=== PATIENT | male | born 1980 | race Caucasian/White ===

== ENCOUNTER 2017-08-16 09:35 | Emergency (ER) | payer OTHER ==
[2017-08-16 09:42] VITALS: BP 153/90; PULSE 77; TEMP 98.7; BMI 43.9
[2017-08-16] MEDS ORDERED: CYCLOBENZAPRINE HCL 10 MG TABLET (FP) PO ONE (10:25)
[2017-08-16] MEDS ORDERED: KETOROLAC TROMETHAMINE 60 MG/2 ML VIAL IM ONE (10:25)
--- NOTE | 2017-08-16 10:26 | PDOC ---
History of Present Illness - General Chief Complaint: Back Pain Stated Complaint: BACK PAIN Time Seen by Provider: 08/16/17 10:02 History Source: Patient Exam Limitations: No Limitations - History of Present Illness Initial Comments: 08/16/17 10:23 She states has back spasm since moving a chair yesterday. States had a long sitting. At work a couple days ago, but states slight movement yesterday caused severe spasm that extends across his lower thoracic spinous musculature. Denies numbness or tingling to hands or feet, has no fever, nausea vomiting diarrhea or constipation. No problems with bowel or bladder. Occurred: reports: yesterday Severity: reports: moderate Pain Location: reports: back Modifying Factors: improves with: None Loss of Consciousness: no loss of consciousness Associated Symptoms (Fall): denies symptoms Past History - Travel Traveled outside of the country in the last 30 days: No Close contact w/someone who was outside of country & ill: No - Past Medical History Allergies/Adverse Reactions: Allergies Allergy/AdvReac Type Severity Reaction Status Date / Time No Known Allergies Allergy Verified 08/16/17 09:37 Home Medications: Ambulatory Orders Metaxalone 400 mg PO TID PRN #20 tablet 08/16/17 HTN: Yes - Surgical History Cholecystectomy: Yes - Immunization History Immunization Up to Date: Yes - Suicide/Smoking/Psychosocial Hx Smoking History: Current every day smoker Have you smoked in the past 12 months: Yes Number of Cigarettes Smoked Daily: 20 Information on smoking cessation initiated: No Hx Alcohol Use: No Drug/Substance Use Hx: No Substance Use Type: None Review of Systems - Review of Systems Able to Perform ROS?: Yes Is the patient limited Kosovan proficient: Yes Constitutional: Yes: See HPI. No: Symptoms Reported, Chills, Fever, Malaise HEENTM: Yes: See HPI. No: Symptoms Reported Respiratory: Yes: See HPI. No: Symptoms reported, Cough, Wheezing : No: Symptoms Reported Musculoskeletal: Yes: Symptoms Reported, See HPI, Back Pain, Muscle Pain, Muscle Weakness Integumentary: Yes: See HPI. No: Symptoms Reported, Rash All Other Systems: Reviewed and Negative *Physical Exam - Vital Signs Last Vital Signs Temp Pulse Resp BP Pulse Ox 98.7 F 77 15 153/90 99 08/16/17 09:38 08/16/17 09:38 08/16/17 09:38 08/16/17 09:38 08/16/17 09:38 - Physical Exam General Appearance: Yes: Nourished, Appropriately Dressed, Apparent Distress, Moderate Distress HEENT: positive: JENNIFER, Normal ENT Inspection, TMs Normal, Pharynx Normal Neck: positive: Supple Respiratory/Chest: positive: Lungs Clear Musculoskeletal: positive: Muscle Spasm (spasm palpated along the paravertebral spinous muscle at the lower trapezius and upper paravertebral lumbar spine area. Has no bone tenderness crepitus or step-offs. Unable to flex and extend at waist secondary to the spasm or vascular intact to feet) Extremity: positive: Normal Capillary Refill, Normal Inspection. negative: Normal Range of Motion, Tender Integumentary: positive: Normal Color, Dry, Warm Neurologic: positive: tissue technologist II-XII NML intact, Fully Oriented, Alert, Normal Mood/ Affect, Normal Response, Motor Strength 03/19 ED Treatment Course - RADIOLOGY Radiology Studies Ordered: Category Date Time Status CHEST PA & LAT [RAD] Stat Radiology 08/16/17 10:02 Ordered Progress Note - Progress Note Progress Note: Back spasm, will treat with NSAIDs and metaxalone, which is covered by his insurance Medical Decision Making - Medical Decision Making 08/16/17 11:01 Patient returned as metaxalone was not covered by insurance, pharmacy was called and prescription for cyclobenzaprine which is covered was called in 10 mg tablets every 8 when necessary for spasm *DC/Admit/Observation/Transfer Diagnosis at time of Disposition: Muscle strain - Discharge Dispostion Admit: No - Prescriptions Prescriptions: Metaxalone 400 mg PO TID PRN #20 tablet PRN Reason: spasm - Referrals Referrals: Mamadou Kumar MD [Primary Care Provider] - - Patient Instructions Printed Discharge Instructions: DI for Back Strain or Sprain Additional Instructions: Rest, no heavy lifting or exercise until pain is resolved Hot soaks to neck and low back as often as possible/hot showers or Jacuzzis No massage or therapy until spasm is gone Continue ibuprofen 2-200 mg tablets every 6 hours for the next 3 days then as needed for pain and swelling Metaxalone 2- 400mg tab every 8 hours as needed for spasm If not significant improvement within 24 hours with medication and rest regime, followup with private physician for change in medications and /or therapy. - Post Discharge Activity Forms/Work/School Notes: Back to Work
[2017-08-16] MEDS ORDERED: KETOROLAC TROMETHAMINE 60 MG/2 ML VIAL ONE (10:27)
[2017-08-16] MEDS ORDERED: CYCLOBENZAPRINE HCL 10 MG TABLET (FP) ONE (10:27)
== END 2017-08-16 10:45 | disposition home or self-care (01) ==
LOC: JERFT 09:35
PROC: 3E0233Z Introduction of Anti-inflammatory into Muscle, Percutaneous Approach (ICD-10-PCS; principal; 2017-08-16)
DX: S29.012A Strain of muscle and tendon of back wall of thorax, initial encounter (principal); M62.830 Muscle spasm of back; X50.0XXA Overexertion from strenuous movement or load, initial encounter; Y93.89 Activity, other specified; Y92.89 Other specified places as the place of occurrence of the external cause; Y99.8 Other external cause status; I10 Essential (primary) hypertension; F17.210 Nicotine dependence, cigarettes, uncomplicated
CPT/HCPCS: 96372; 99281-25

== ENCOUNTER 2017-08-22 20:47 | Emergency (ER) | payer OTHER ==
[2017-08-22 21:02] VITALS: BP 163/92; PULSE 83; TEMP 98.8; BMI 42.7
[2017-08-22] MEDS ORDERED: KETOROLAC TROMETHAMINE 30 MG/1 ML VIAL IM ONE (21:39)
[2017-08-22] MEDS ORDERED: diazePAM CARPU-JECT 10 MG/2 ML DISP.SYRIN IVPUSH ONE (21:39)
[2017-08-22 22:01] LABS: BASOPHIL 1.4 % (0-2.0); EOSINOPHIL 4.4 % (0-4.5); MCH 29.1 pg (25.7-33.7); MCHC 33.8 g/dl (32.0-35.9); MEAN CELL VOLUME 86.2 fl (80-96); MEAN PLT VOLUME 7.2 fl (7.5-11.1); NEUTROPHILS 53.2 % (42.8-82.8); PLATELET COUNT 323 K/MM3 (134-434); RDW 13.9 % (11.9-15.9); WHITE BLOOD COUNT 10.3 K/mm3 (4.0-10.0)
[2017-08-22] MEDS ORDERED: KETOROLAC TROMETHAMINE 30 MG/1 ML VIAL ONE (22:13)
[2017-08-22] MEDS ORDERED: diazePAM 5 MG TABLET PO ONE (22:15)
[2017-08-22] MEDS ORDERED: diazePAM 5 MG TABLET ONE (22:16)
[2017-08-22 22:17] LABS: URINE APPEARANCE SLCLOUDY; URINE BILIRUBIN NEGATIVE (NEGATIVE); URINE BLOOD 1+ (NEGATIVE); URINE COLOR YELLOW; URINE GLUCOSE (UA) NEGATIVE (NEGATIVE); URINE KETONE NEGATIVE (NEGATIVE); URINE NITRITE NEGATIVE (NEGATIVE); URINE PROTEIN NEGATIVE (NEGATIVE); URINE UROBILINOGEN NEGATIVE mg/dL (0.2-1.0)
[2017-08-22 22:22] LABS: URINE BACTERIA RARE /hpf (NONE SEEN); URINE MUCUS MANY; URINE RBC <1 /hpf (0-3); URINE WBC 1 /hpf (3-5)
[2017-08-22 22:28] LABS: ALBUMIN 3.6 g/dl (3.4-5.0); ALK PHOS 66 U/L (45-117); ANION GAP 6 (8-16); BILIRUBIN,TOTAL 0.3 mg/dL (0.2-1.0); CO2 28 mmol/L (21-32); CREATININE 0.8 mg/dL (0.7-1.3); GLUCOSE,RANDOM 98 mg/dL (74-106); SGOT/AST 21 U/L (15-37); SGPT/ALT 42 U/L (12-78); TOT PROT 7.2 g/dl (6.4-8.2)
--- NOTE | 2017-08-22 23:39 | PDOC ---
History of Present Illness - General Chief Complaint: Pain Stated Complaint: BACK PAIN Time Seen by Provider: 08/22/17 21:22 History Source: Patient Exam Limitations: No Limitations - History of Present Illness Initial Comments: 08/22/17 23:31 36yo Male patient with no significant past medical history presents to ED c/o constant back pain. Patient states he was seen in this ED 08/16/2017, dx with back strain and given Motrin and Flexeril. Patient f/u with PCP 2 days later and was Rx: Duexis and topical diclofenac with no relief. Patient states initially injury occurred at work. 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 He also states pain has not worsened, but remains the same as it did the day of complaint. Patient denies any other complaints at this time. Occurred: reports: last week. denies: just prior to arrival, this morning, this afternoon, this evening, yesterday, other Severity: reports: moderate. denies: mild, severe Pain Location: reports: back. denies: none, abdomen, chest, face, head, lower extremity, mouth, neck, other, pelvis, upper extremity Method of Injury: Yes: other (See HPI). No: unknown, assault, direct blow, fall , motor vehicle crash Modifying Factors: improves with: pain medication, rest. worse with: None, cold therapy, immobilization, other Associated Symptoms (Fall): muscle spasms Past History - Travel Traveled outside of the country in the last 30 days: No Close contact w/someone who was outside of country & ill: No - Past Medical History Allergies/Adverse Reactions: Allergies Allergy/AdvReac Type Severity Reaction Status Date / Time No Known Allergies Allergy Verified 08/22/17 20:59 Home Medications: Ambulatory Orders Cyclobenzaprine HCl [Flexeril 10 mg] 10 mg PO BID PRN 08/22/17 Enalapril Maleate [Vasotec] 20 mg PO BID 08/22/17 Methocarbamol [Robaxin -] 500 mg PO BID PRN #14 tablet 08/23/17 Oxycodone HCl/Acetaminophen [Percocet 10-325 mg Tablet] 1 each PO Q6H PRN #12 tablet MDD 4 tabs 08/23/17 HTN: Yes - Surgical History Cholecystectomy: Yes - Immunization History Immunization Up to Date: Yes - Suicide/Smoking/Psychosocial Hx Smoking History: Current every day smoker Have you smoked in the past 12 months: Yes Number of Cigarettes Smoked Daily: 20 Information on smoking cessation initiated: No Hx Alcohol Use: No Drug/Substance Use Hx: No Substance Use Type: None Trauma Specific PMHX - Complaint Specific PMHX Arthritis: No Back Injury: No Neck Injury: No Hx Sacro Iliac Joint Dysfunction: No Review of Systems - Review of Systems Able to Perform ROS?: Yes Is the patient limited Swedish proficient: No Musculoskeletal: Yes: Back Pain All Other Systems: Reviewed and Negative *Physical Exam - Vital Signs Last Vital Signs Temp Pulse Resp BP Pulse Ox 98.8 F 83 20 163/92 98 08/22/17 21:00 08/22/17 21:00 08/22/17 21:00 08/22/17 21:00 08/22/17 21:00 - Physical Exam General Appearance: Yes: Nourished, Appropriately Dressed. No: Apparent Distress, Mild Distress, Moderate Distress, Severe Distress Respiratory/Chest: positive: Lungs Clear, Normal Breath Sounds. negative: Chest Tender, Respiratory Distress, Accessory Muscle Use, Labored Respiration, Rapid RR, Paradoxal Breathing, Stridor, Wheezing Cardiovascular: positive: Regular Rhythm, Regular Rate Musculoskeletal: positive: Normal Inspection, CVA Tenderness, CVA Tenderness (R) , CVA Tenderness (L), Decreased Range of Motion, Muscle Spasm. negative: Vertebral Tenderness Extremity: positive: Normal Capillary Refill, Normal Inspection, Normal Range of Motion. negative: Pedal Edema, Swelling, Calf Tenderness, Erythema, Inflammation Integumentary: positive: Normal Color, Dry, Warm Neurologic: positive: pharmacy associate II-XII NML intact, Fully Oriented, Alert, Normal Mood/ Affect, Normal Response, Motor Strength /5 ED Treatment Course - LABORATORY CBC & Chemistry Diagram: 08/22/17 21:52 08/22/17 21:52 - ADDITIONAL ORDERS Additional order review: Laboratory Results 08/22/17 08/22/17 22:00 21:52 Sodium 140 Potassium 3.8 Chloride 106 Carbon Dioxide 28 Anion Gap 6 L BUN 14 Creatinine 0.8 D Creat Clearance w eGFR > 60 Random Glucose 98 Calcium 9.0 Total Bilirubin 0.3 D AST 21 ALT 42 Alkaline Phosphatase 66 D Total Protein 7.2 Albumin 3.6 Urine Color Yellow Urine Appearance Slcloudy Urine pH 5.0 Urine Protein Negative Urine Glucose (UA) Negative Urine Ketones Negative Urine Blood 1+ H Urine Nitrite Negative Urine Bilirubin Negative Urine Urobilinogen Negative Urine RBC <1 Urine WBC 1 Ur Epithelial Cells Rare Urine Bacteria Rare Urine Mucus Many 08/22/17 21:52 RBC 5.30 MCV 86.2 MCHC 33.8 RDW 13.9 MPV 7.2 L Neutrophils % 53.2 Lymphocytes % 33.0 D Monocytes % 8.0 Eosinophils % 4.4 D Basophils % 1.4 - RADIOLOGY Radiology Studies Ordered: Category Date Time Status ABDOMEN & PELVIS CT W/O CONTR [CT] Stat CT Scan 08/22/17 21:[address] W/O CONTRAST [CT] Stat CT Scan 08/22/17 23:16 Taken - Medications Given in the ED: ED Medications Discontinued Medications Generic Name Dose Route Start Last Admin Trade Name Freq PRN Reason Stop Dose Admin Diazepam 5 mg 08/22/17 21:39 08/22/17 22:22 Valium Injection - IVPUSH 08/22/17 21:40 Not Given ONCE ONE Diazepam 5 mg 08/22/17 22:15 08/22/17 22:22 Valium - PO 08/22/17 22:16 5 mg ONCE ONE Administration Ketorolac Tromethamine 30 mg 08/22/17 21:39 08/22/17 22:22 Toradol Injection - IM 08/22/17 21:40 30 mg ONCE ONE Administration *DC/Admit/Observation/Transfer Diagnosis at time of Disposition: Lumbago Qualifiers: Chronicity: acute Back pain laterality: bilateral Sciatica presence: without sciatica Qualified Code(s): M54.5 - Low back pain; M54.5 - Low back pain - Discharge Dispostion Disposition: HOME Condition at time of disposition: Improved Admit: No - Prescriptions Prescriptions: Oxycodone HCl/Acetaminophen [Percocet 10-325 mg Tablet] 1 each PO Q6H PRN #12 tablet MDD 4 tabs PRN Reason: Severe Pain Methocarbamol [Robaxin -] 500 mg PO BID PRN #14 tablet PRN Reason: Back Pain - Referrals Referrals: Mamadou Kumar MD [Primary Care Provider] - Sg Gallegos MD [Staff Physician] - - Patient Instructions Printed Discharge Instructions: DI for Low Back Pain Additional Instructions: You have been diagnosed with Lumbago (Low back pain), follow up with Dr. Gallegos ( Orthopedist) this week for further evaluation. Percocet for pain not relieved by Motrin or Tylenol. Apply warm compresses to affected area as needed. Do not drive, drink alcohol or operate heavy machinery while taking Percocet. Get plenty rest. No bend over at waist or lifting objects heavier than 10 lbs until cleared by your orthopedist. Usted mccall sido diagnosticado con Lumbago (dolor lumbar), el seguimiento con el Dr. Gallegos (Orthopedist) esta semana para la evaluacin adicional. Percocet para el dolor no aliviado por Motrin o Tylenol. Aplique compresas calientes a la aniket afectada segn sea necesario. No conduzca, salma alcohol ni opere maquinaria pesada mientras est tomando Percocet. Descanse mucho. No se doble por encima de la cintura ni levante objetos ms pesados que 10 libras hasta que nakita despejados por thayer ortopedista. Print Language: IRANIAN - Post Discharge Activity Forms/Work/School Notes: Back to Work
[2017-08-23] MEDS ORDERED: traMADol HCL 50 MG TABLET PO ONE (01:56)
[2017-08-23] MEDS ORDERED: methylPREDNISolone NA SUCC 125 MG/2 ML VIAL IVPB ONE (01:56)
[2017-08-23] MEDS ORDERED: traMADol HCL 50 MG TABLET ONE (02:03)
[2017-08-23] MEDS ORDERED: methylPREDNISolone NA SUCC 125 MG/2 ML VIAL ONE (02:03)
[2017-08-23 15:38] LABS: URINE LEUK ESTERASE Negative (NEGATIVE)
== END 2017-08-23 03:02 | disposition home or self-care (01) ==
LOC: JER 20:47
PROC: 3E033NZ Introduction of Analgesics, Hypnotics, Sedatives into Peripheral Vein, Percutaneous Approach (ICD-10-PCS; principal; 2017-08-22)
PROC: 3E0233Z Introduction of Anti-inflammatory into Muscle, Percutaneous Approach (ICD-10-PCS; 2017-08-22)
DX: M54.5 Low back pain (principal); I10 Essential (primary) hypertension; F17.210 Nicotine dependence, cigarettes, uncomplicated
CPT/HCPCS: 36415; 72131-TC; 74176-TC; 80053; 81003; 81015; 85025; 99283-25

== ENCOUNTER 2017-10-27 09:35 | Emergency (ER) | payer OTHER ==
[2017-10-27 09:39] VITALS: BP 152/95; PULSE 116; TEMP 98.1; BMI 44.0
--- NOTE | 2017-10-27 10:35 | PDOC ---
History of Present Illness - General Chief Complaint: Back Pain Stated Complaint: LOWER BACK PAIN Time Seen by Provider: 10/27/17 09:52 History Source: Patient Exam Limitations: No Limitations - History of Present Illness Initial Comments: 10/27/17 10:42 Patient here with complaints of 3 exacerbated low back pain. 2 months ago sustained an injury to his lumbar spine, was evaluated, treated and completed course of physical therapy with good resolution of low back pain. Was told had some disc issues but resolved with medications and physical therapy. Patient was well until a few days ago when he woke up and had a recurrence of the same type of pain lower back with some mild spasm. has been using ibuprofen 800 mg, has used icy hot and patches for pain relief. Has perform some of the exercises he learned during physical therapy but have not resolved this re-exacerbation of pain. Denies numbness or tingling to hands or feet, denies any problems with bowel or bladder, denies fever. Occurred: reports: other Severity: reports: moderate, severe Pain Location: reports: back Method of Injury: Yes: unknown, other (heavy lifting 2 mos ago) Modifying Factors: improves with: pain medication Loss of Consciousness: no loss of consciousness Associated Symptoms (Fall): denies symptoms Past History - Travel Traveled outside of the country in the last 30 days: No Close contact w/someone who was outside of country & ill: No - Past Medical History Allergies/Adverse Reactions: Allergies Allergy/AdvReac Type Severity Reaction Status Date / Time No Known Allergies Allergy Verified 10/27/17 09:39 Home Medications: Ambulatory Orders Enalapril Maleate [Vasotec] 20 mg PO BID 08/22/17 Amlodipine Besylate [Norvasc -] 10 mg PO DAILY 10/27/17 Cyclobenzaprine HCl [Flexeril 10 mg] 10 mg PO BID PRN #14 tablet 10/27/17 Oxycodone HCl/Acetaminophen [Percocet 5-325 mg Tablet -] 1 - 2 tab PO Q4H PRN # 7 tablet MDD 4 10/27/17 Prednisone [Deltasone -] 20 mg PO BID #10 tablet 10/27/17 COPD: No HTN: Yes - Surgical History Cholecystectomy: Yes - Immunization History Immunization Up to Date: Yes - Suicide/Smoking/Psychosocial Hx Smoking History: Current every day smoker Have you smoked in the past 12 months: Yes Number of Cigarettes Smoked Daily: 20 Information on smoking cessation initiated: Yes 'Breaking Loose' booklet given: 10/27/17 Hx Alcohol Use: No Drug/Substance Use Hx: No Substance Use Type: None Trauma Specific PMHX - Complaint Specific PMHX Arthritis: No Back Injury: No Neck Injury: No Hx Sacro Iliac Joint Dysfunction: No Review of Systems - Review of Systems Able to Perform ROS?: Yes Is the patient limited Montserratian proficient: Yes Constitutional: Yes: Symptoms Reported, See HPI, Loss of Appetite, Malaise. No : Chills, Fever Respiratory: No: Symptoms reported Musculoskeletal: Yes: Symptoms Reported, See HPI, Back Pain, Muscle Pain, Muscle Weakness All Other Systems: Reviewed and Negative *Physical Exam - Vital Signs Last Vital Signs Temp Pulse Resp BP Pulse Ox 98.1 F 116 H 20 152/95 98 10/27/17 09:36 10/27/17 09:36 10/27/17 09:36 10/27/17 09:36 10/27/17 09:36 - Physical Exam General Appearance: Yes: Nourished, Appropriately Dressed, Apparent Distress, Moderate Distress HEENT: positive: JENNIFER, Normal ENT Inspection, TMs Normal, Pharynx Normal Neck: positive: Supple. negative: Tender Respiratory/Chest: positive: Lungs Clear Musculoskeletal: positive: Normal Inspection, Decreased Range of Motion, Muscle Spasm (palpable tendern ess and tightness to paravertebral muscles, walks with right list and unable to stand straight due to pain. NV intact to feet ). negative: CVA Tenderness, Vertebral Tenderness Extremity: positive: Normal Inspection. negative: Normal Range of Motion Integumentary: positive: Normal Color, Dry, Warm Neurologic: positive: hog cooler II-XII NML intact, Fully Oriented, Alert, Normal Mood/ Affect, Normal Response, Motor Strength 5/5 Progress Note - Progress Note Progress Note: Review exacerbation of chronic back pain. We'll treat with 5 day course of steroids, continue anti-inflammatories, added cyclobenzaprine and #7 Percocet tablets for severe pain. Encouraged to follow up with Orth O and/or neurosurgery. *DC/Admit/Observation/Transfer Diagnosis at time of Disposition: Back pain Qualifiers: Back pain location: low back pain Chronicity: chronic Back pain laterality: bilateral Sciatica presence: without sciatica Qualified Code(s): M54.5 - Low back pain; G89.29 - Other chronic pain; G89.29 - Other chronic pain - Discharge Dispostion Disposition: HOME Condition at time of disposition: Stable Admit: No - Prescriptions Prescriptions: Cyclobenzaprine HCl [Flexeril 10 mg] 10 mg PO BID PRN #14 tablet PRN Reason: spasm Oxycodone HCl/Acetaminophen [Percocet 5-325 mg Tablet -] 1 - 2 tab PO Q4H PRN # 7 tablet MDD 4 PRN Reason: Pain Prednisone [Deltasone -] 20 mg PO BID #10 tablet - Referrals Referrals: Mamadou Kumar MD [Primary Care Provider] - Sg Gallegos MD [Staff Physician] - Santy Cohen MD [Staff Physician] - - Patient Instructions Printed Discharge Instructions: DI for Back Strain or Sprain Additional Instructions: Rest, no heavy lifting or exercise until pain is resolved Hot soaks to neck and low back as often as possible/hot showers or Jacuzzis No massage or therapy until spasm is gone Continue ibuprofen 800 mg tablets every 8 hours for the next 3 days then as needed for pain and swelling Prednisone 40 mg daily for 5 days as directed Cyclobenzaprine 1-10mg every 8 hours as needed for spasm If not significant improvement within 24 hours with medication and rest regime, followup with private physician for change in medications and /or therapy. - Post Discharge Activity Forms/Work/School Notes: Back to Work
== END 2017-10-27 10:54 | disposition home or self-care (01) ==
LOC: JERFT 09:35
DX: M54.5 Low back pain (principal); G89.29 Other chronic pain; I10 Essential (primary) hypertension; F17.210 Nicotine dependence, cigarettes, uncomplicated
CPT/HCPCS: 99281-25

== ENCOUNTER 2017-11-17 08:58 | Emergency (ER) | payer OTHER ==
[2017-11-17 09:13] VITALS: BP 155/85; PULSE 102; TEMP 99.1; BMI 44.0
--- NOTE | 2017-11-17 09:55 | PDOC ---
History of Present Illness - General Chief Complaint: Cold Symptoms Stated Complaint: PAIN Time Seen by Provider: 11/17/17 09:21 - History of Present Illness Initial Comments: 11/17/17 09:50 CHIEF COMPLAINT: cold symptoms HISTORY OF PRESENT ILLNESS: 37 yo M with hx of asthma, HTN and DM (no longer on medication per PCP) presents to fast track with cough, sore throat, and subjective fever x 3 days. Patient reports "feeling like I have the flu" and that he has had a nonproductive wet cough with a lot of congestion and runny nose. No recent travel or sick contacts. PAST MEDICAL HISTORY:as per HPI FAMILY HISTORY: Denies SOCIAL HISTORY: Denies tobacco, alcohol, illicit drug use. SURGICAL HISTORY: Denies ALLERGIES: No known drug allergies REVIEW OF SYSTEMS General/Constitutional: Subjective fever, weakness. HEENT: Denies change in vision. Denies ear pain or discharge. Denies sore throat. Cardiovascular: Denies chest pain. Respiratory: "A lot of cough and wheezing." Gastrointestinal: Denies nausea, vomiting, diarrhea. Genitourinary: Denies dysuria, frequency, or change in urination. Musculoskeletal: Body aches, denies neck or back pain. Skin and breasts: Denies rash. PHYSICAL EXAM General Appearance: Well-appearing, appropriately dressed. No apparent distress. HEENT: Congestion, rhinorrhea, swollen turbinates. R tonsil 2+, L tonsil 3+, no exudate b/l. EOMI, PERRLA, normal ENT inspection, normal voice, TMs normal, pharynx normal. No conjunctival pallor. No photophobia, scleral icterus. Neck: Supple. Trachea midline Respiratory/Chest: Lungs CTAB. Cardiovascular: RRR. S1, S2. Gastrointestinal/Abdominal: Normal bowel sounds. Abdomen soft, non-distended. No tenderness or rebound tenderness. No organomegaly, pulsatile mass, guarding , hernia, hepatomegaly, splenomegaly. Musculoskeletal/Extremities: Normal inspection. FROM of all extremities, normal capillary refill. Pelvis Stable. No CVA tenderness. No tenderness to extremities, pedal edema, swelling, erythema or deformity. Integumentary: Appropriate color, dry, warm. No cyanosis, erythema, jaundice or rash Neurologic: paralegal II-XII intact. Fully oriented, alert. Appropriate mood/affect. Motor strength 5/5. No appreciable EOM palsy, facial droop or sensory deficit. Past History - Past Medical History Allergies/Adverse Reactions: Allergies Allergy/AdvReac Type Severity Reaction Status Date / Time No Known Allergies Allergy Verified 11/17/17 09:13 Home Medications: Ambulatory Orders Dextromethorphan HBr [Tussin Cough] 15 mg PO QID PRN #120 liquid 11/17/17 Ibuprofen 600 mg PO TID PRN #30 tablet 11/17/17 Loratadine [Claritin] 10 mg PO DAILY #14 tablet 11/17/17 Nebivolol HCl [Bystolic] 20 mg PO BID 11/17/17 Pseudoephedrine HCl [Sudafed 12 Hour] 120 mg PO BID PRN #20 tablet.er 11/17/17 COPD: No HTN: Yes - Surgical History Cholecystectomy: Yes - Immunization History Immunization Up to Date: Yes - Suicide/Smoking/Psychosocial Hx Smoking History: Current every day smoker Have you smoked in the past 12 months: Yes Number of Cigarettes Smoked Daily: 20 Information on smoking cessation initiated: Yes 'Breaking Loose' booklet given: 11/17/17 Hx Alcohol Use: No Drug/Substance Use Hx: No Substance Use Type: None *Physical Exam - Vital Signs Last Vital Signs Temp Pulse Resp BP Pulse Ox 99.1 F 102 H 20 155/85 99 11/17/17 09:10 11/17/17 09:10 11/17/17 09:10 11/17/17 09:10 11/17/17 09:10 Medical Decision Making - Medical Decision Making 11/17/17 09:54 : 37 yo M with hx of asthma, HTN and DM (no longer on medication per PCP) presents to fast track with cough, sore throat, and subjective fever x 3 days. -flu, strep swabs *DC/Admit/Observation/Transfer Diagnosis at time of Disposition: Viral URI - Discharge Dispostion Disposition: HOME Condition at time of disposition: Stable Admit: No - Prescriptions Prescriptions: Dextromethorphan HBr [Tussin Cough] 15 mg PO QID PRN #120 liquid PRN Reason: Cough Ibuprofen 600 mg PO TID PRN #30 tablet PRN Reason: fever, body aches Loratadine [Claritin] 10 mg PO DAILY #14 tablet Pseudoephedrine HCl [Sudafed 12 Hour] 120 mg PO BID PRN #20 tablet.er PRN Reason: runny nose, congestion - Referrals Referrals: Mamadou Kumar MD [Primary Care Provider] - - Patient Instructions Printed Discharge Instructions: DI for Viral Upper Respiratory Infection -- Adult Additional Instructions: Please take medications as prescribed. Please get plenty of rest and drink lots of fluids to help break up any secretions. Follow up with your primary care doctor if symptoms persist past 5-7 days. If you develop any fever or chills unrelieved by Motrin or Tylenol, persistent vomiting or diarrhea, shortness of breath unrelieved by your inhaler, or any new or worsening symptoms, please return to the ER. - Post Discharge Activity Forms/Work/School Notes: Back to Work
== END 2017-11-17 10:20 | disposition home or self-care (01) ==
LOC: JERFT 08:58
DX: J06.9 Acute upper respiratory infection, unspecified (principal); J45.909 Unspecified asthma, uncomplicated; I10 Essential (primary) hypertension; E11.9 Type 2 diabetes mellitus without complications
CPT/HCPCS: 87070; 87430; 87804; 99281-25

== ENCOUNTER 2017-12-01 23:02 | Emergency (ER) | payer OTHER ==
[2017-12-01 23:23] VITALS: TEMP 97.6; BMI 42.9
--- NOTE | 2017-12-01 23:52 | PDOC ---
Attending Attestation - HPI HPI: 12/02/17 00:45 The patient is a 37 year old male, with a significant past medical history of hypertension, who presents to the emergency department with right ankle pain and swelling s/p slip and fall on ice just prior to presentation. The patient reports the pain is localized to his right medial ankle. He reports immediate swelling after the fall. The patient states he was unable to walk after the fall secondary to pain. He denies chest pain, shortness of breath, headache and dizziness. He denies fever, chills, nausea, vomit, diarrhea and constipation. He denies dysuria, frequency, urgency and hematuria. - Physicial Exam PE: 12/02/17 00:45 GENERAL: Well-appearing, well-nourished. No apparent distress. HEENT: Normocephalic, atraumatic. PERRL, EOM intact. CARDIOVASCULAR: Normal S1, S2. Regular rate and rhythm. PULMONARY: Clear to auscultation bilaterally. ABDOMEN: Soft, non-distended, non-tender. EXTREMITIES: (+) Swelling to right medial malleolus, decreased ROM to right ankle secondary to pain, distal pulses intact and symmetric. Normal ROM in all remaining extremities. No other gross deformities. SKIN: Warm, dry. No rash NEUROLOGICAL: No focal neurological deficits. Documentation prepared by Maria Elena Thao, acting as hospitalist medical director for León Espana DO. <Maria Elena Thao - Last Filed: 12/02/17 00:40> - Resident Resident Name: Pina Quinn - ED Attending Attestation I have performed the following: I have examined & evaluated the patient, The case was reviewed & discussed with the resident, I agree w/resident's findings & plan, Exceptions are as noted - Medical Decision Making 12/02/17 03:21 pt right leg was splinted and discharged to follow up with Ortho. Crutches given for non weight bearing <León Espana - Last Filed: 12/02/17 03:22>
[2017-12-02] MEDS ORDERED: ACETAMINOPHEN 1000 MG/100 ML VIAL (NON FORMULARY) IVPB ONE
[2017-12-02] MEDS ORDERED: morphine CARPU-JECT 2 MG/1 ML DISP.SYRIN IM ONE (00:05)
[2017-12-02] MEDS ORDERED: morphine CARPU-JECT 10 MG/1 ML DISP.SYRIN ONE (00:20)
[2017-12-02] MEDS ORDERED: ACETAMINOPHEN INJECTION 100 ML IVPB ONE (00:20)
--- NOTE | 2017-12-02 00:40 | PDOC ---
History of Present Illness - General Chief Complaint: Injury Stated Complaint: FALL/ANKLE PAIN Time Seen by Provider: 12/01/17 23:44 History Source: Patient Exam Limitations: No Limitations - History of Present Illness Initial Comments: This is a 37 YOM with h/o HTN who presents BIBA s/p fall and right ankle injury. He notes having been walking down about two steps and slipping on ice, falling onto his right side and twisting his ankle in the process. He felt a pop in the right ankle during the fall and has since been unable to bear weight on the right foot. He has 10/10 pain which has been worsening since the accident just [employer]GET[employer]. He denies having hit his head, lost consciousness, or suffered any additional injuries as a result of the fall. He denies neck pain, vision changes, nausea, vomiting, bleeding, foot numbness/tingling/weakness/ coldness, etc. Past History - Past Medical History Allergies/Adverse Reactions: Allergies Allergy/AdvReac Type Severity Reaction Status Date / Time No Known Allergies Allergy Verified 11/17/17 09:13 Home Medications: Ambulatory Orders Amlodipine Besylate [Norvasc -] 0 mg PO DAILY 12/02/17 Enalapril Maleate [Vasotec] 20 mg PO BID 12/02/17 Oxycodone HCl/Acetaminophen [Percocet 5-325 mg Tablet] 1 tab PO Q4H PRN #20 tablet MDD 6 12/02/17 COPD: No HTN: Yes - Surgical History Cholecystectomy: Yes - Immunization History Immunization Up to Date: Yes - Suicide/Smoking/Psychosocial Hx Smoking History: Never smoked Have you smoked in the past 12 months: No Number of Cigarettes Smoked Daily: 20 Information on smoking cessation initiated: No 'Breaking Loose' booklet given: 11/17/17 Hx Alcohol Use: No Drug/Substance Use Hx: No Substance Use Type: None Trauma Specific PMHX - Complaint Specific PMHX Arthritis: No Back Injury: No Neck Injury: No Hx Sacro Iliac Joint Dysfunction: No Review of Systems - Review of Systems Able to Perform ROS?: Yes Constitutional: No: Chills, Fever, Unexplained wgt Loss HEENTM: No: Nose Congestion, Throat Pain Respiratory: No: Cough, Shortness of Breath Cardiac (ROS): No: Chest Pain, Palpitations, Syncope ABD/GI: No: Constipated, Diarrhea, Nausea, Vomiting : No: Burning, Dysuria Musculoskeletal: Yes: Joint Pain (right ankle), Joint Swelling (right ankle). No: Back Pain, Neck Pain Integumentary: No: Bruising, Rash Neurological: No: Headache, Numbness, Tingling, Weakness, Dizziness Endocrine: No: Unexplained Weight Gain, Unexplained Weight Loss *Physical Exam - Vital Signs Last Vital Signs Temp Pulse Resp BP Pulse Ox 97.6 F 93 H 20 159/98 97 12/01/17 23:02 12/01/17 23:02 12/01/17 23:02 12/01/17 23:02 12/01/17 23:02 ED Treatment Course - RADIOLOGY Radiology Studies Ordered: Category Date Time Status ANKLE & FOOT-RIGHT* [RAD] Stat Radiology 12/02/17 00:01 Ordered KNEE 2 POS-RIGHT [RAD] Stat Radiology 12/02/17 00:02 Ordered - Medications Given in the ED: ED Medications Discontinued Medications Generic Name Dose Route Start Last Admin Trade Name Freq PRN Reason Stop Dose Admin Acetaminophen 1,000 mg 12/02/17 00:00 12/02/17 00:30 Ofirmev Injection - IVPB 12/02/17 00:01 1,000 mg ONCE ONE Administration Morphine Sulfate 4 mg 12/02/17 00:05 12/02/17 00:31 Morphine Injection - IM 12/02/17 00:06 4 mg ONCE ONE Administration Medical Decision Making - Medical Decision Making 37 YOM with h/o HTN who suffered mechanical fall with right ankle injury now NWB with 10/10 ankle pain. Medial ankle ecchymosis and inability to bear weight in the ED. On exam HR is 93, BP 159/98, appears in mild distress, increases to moderate distress with mvmt of right ankle. He has medial ankle developing ecchymosis and significant ttp medial>lateral joint line. No signs of trauma other than right ankle/foot. DDX IBNLT ankle fxr, dislocation, tib and/or fib fxr, sprain/strain, contusion, etc. Ordered is Ofirmev, Morphine IM, XR foot/ankle and knee. 12/02/17 01:00 On ankle/foot XR there is angulated distal fibula fxr and widening (possible dislocation) of talus-tibia surfaces especially medially. Patient is consented for conscious sedation and reduction. Conscious sedation achieved with 10 mg etomidate after 1 mg Dilaudid given. Fxr/dislocation is reduced with traction/countertraction. Posterior and sugar tong splint is applied immediately subsequently. Patient tolerated this well and no complications. 12/02/17 03:02 Post-reduction film shows slight improvement in widening between talus and distal tibia. Patient is adamant that he wants to go home. He is given crutches and referral information for orthopedics. He understands he should not bear weight on the foot/ankle and should use crutches at all times. He is strongly encouraged to follow up with ortho today. Return precautions are discussed. *DC/Admit/Observation/Transfer Diagnosis at time of Disposition: Fibula fracture Qualifiers: Encounter type: initial encounter Fibula location: lateral malleolus Fracture type: closed Fracture alignment: nondisplaced Laterality: right Qualified Code(s ): S82.64XA - Nondisplaced fracture of lateral malleolus of right fibula, initial encounter for closed fracture Dislocation of ankle, closed Qualifiers: Encounter type: initial encounter Laterality: right Qualified Code(s): S93.04XA - Dislocation of right ankle joint, initial encounter Fall Qualifiers: Encounter type: initial encounter Qualified Code(s): W19.XXXA - Unspecified fall, initial encounter - Discharge Dispostion Disposition: HOME Condition at time of disposition: Stable Admit: No - Prescriptions Prescriptions: Oxycodone HCl/Acetaminophen [Percocet 5-325 mg Tablet] 1 tab PO Q4H PRN #20 tablet MDD 6 PRN Reason: Pain - Referrals Referrals: Mamadou Kumar MD [Primary Care Provider] - Ishmael Mims MD [Staff Physician] - - Patient Instructions Printed Discharge Instructions: DI for Ankle Dislocation, DI for Ankle Fracture Additional Instructions: You were seen in the ER with an ankle fracture and dislocation. We did a conscious sedation and reduced the injured ankle, which partially fixed it, but you will need to follow up today with an orthopedist. Please use crutches at all times that you are walking, and do not put any weight on the right foot/ ankle. This is very important and we are giving you referral information for our orthopedist marketing operations specialist. Tell them that you were seen in the ER overnight and you have an ankle fracture with dislocation and need to be seen today. Please take Percocet and Ibuprofen as needed for pain. We are sending a prescription for Percocet to [facility]. Please return to the ER for any new or worsening symptoms, or inability to move the toes, numbness or tingling or coldness of the toes, or other symptoms. - Post Discharge Activity
[2017-12-02] MEDS ORDERED: HYDROmorphone HCL CARPU-JECT 1 MG/1 ML DISP.SYRIN IVPUSH ONE (01:14)
[2017-12-02] MEDS ORDERED: ETOMIDATE 40 MG/20 ML VIAL IVPUSH ONE (01:14)
[2017-12-02] MEDS ORDERED: HYDROmorphone HCL CARPU-JECT 2 MG/1 ML DISP.SYRIN ONE (01:20)
[2017-12-02] MEDS ORDERED: ETOMIDATE 20 MG/10 ML AMPUL IVPUSH ONE (01:34)
[2017-12-02 02:28] VITALS: BP 147/90; PULSE 91
[2017-12-02] MEDS ORDERED: IBUPROFEN 400 MG TABLET (FP) PO ONE (03:08)
== END 2017-12-02 03:28 | disposition home or self-care (01) ==
LOC: JER 23:02
PROC: 0QSJXZZ Reposition Right Fibula, External Approach (ICD-10-PCS; principal; 2017-12-01)
PROC: 2W3QX1Z Immobilization of Right Lower Leg using Splint (ICD-10-PCS; 2017-12-01)
DX: S82.64XA Nondisplaced fracture of lateral malleolus of right fibula, initial encounter for closed fracture (principal); S93.04XA Dislocation of right ankle joint, initial encounter; W00.1XXA Fall from stairs and steps due to ice and snow, initial encounter; Y93.89 Activity, other specified; Y92.038 Other place in apartment as the place of occurrence of the external cause
CPT/HCPCS: 73560-TC-RT; 73610-TC-RT; 73630-TC-RT; 99283-25

== ENCOUNTER 2017-12-16 07:36 | Day surgery (SDC) | payer OTHER ==
[2017-12-13 11:19] VITALS: BMI 43.4
[2017-12-16] MEDS ORDERED: MIDAZOLAM HCL 2 MG/2 ML SINGLE DOSE VIAL ONE (08:38)
[2017-12-16] MEDS ORDERED: DEXAMETHASONE SOD PHOSPHATE/PF 10 MG/ML SDV ONE (08:38)
[2017-12-16] MEDS ORDERED: ROPIVACAINE HCL 0.5% 30ML VIAL ONE (08:38)
[2017-12-16] MEDS ORDERED: PROPOFOL 20 ML ONE ×2 (09:05→09:36)
[2017-12-16] MEDS ORDERED: ONDANSETRON 4 MG/2 ML VIAL ONE (09:21)
[2017-12-16] MEDS ORDERED: ceFAZolin SODIUM 1 GM VIAL ONE (09:21)
[2017-12-16] MEDS ORDERED: KETOROLAC TROMETHAMINE 30 MG/1 ML VIAL ONE (09:42)
[2017-12-16] MEDS ORDERED: TRANEXAMIC ACID 1000 MG/10 ML VIAL ONE (09:46)
[2017-12-16] MEDS ORDERED: METOPROLOL TARTRATE 5 MG/5 ML VIAL ONE (11:12)
--- NOTE | 2017-12-16 11:35 | OP ---
Operative Note - Note: Operative Date: 12/16/17 Pre-Operative Diagnosis: right malleolus fracture Operation: right ankle open reduction internal fixation of lateral malleolus fracture, repair with distal fibular plate Implants: right distal fibular plate with screws Surgeon: Johnny Reece Can Doffer: Kayla Maxwell Anesthesiologist/SOLAR DESIGN ENGINEER: Tiago Soler Anesthesia: General Fluid Volume Replaced (mls): 1,700 Operative Report Dictated: Yes
[2017-12-16] MEDS ORDERED: LABETALOL HCL 5 MG/1 ML (100MG/20 ML VIAL) ONE (11:48)
--- NOTE | 2017-12-16 12:01 | OP ---
DATE OF OPERATION: 12/16/2017 PREOPERATIVE DIAGNOSIS: Right unstable ankle fracture. POSTOPERATIVE DIAGNOSIS: Right unstable ankle fracture. PROCEDURE: Right ankle open reduction and internal fixation. SURGEON: Johnny Reece MD COOPERAGE SHOP SUPERVISOR: GEOVANNI Núñez, whose skillful assistance was necessary for the safe and timely performance of this procedure. Ms. Maxwell was able to provide assistance with limb positioning, retraction, assist in fracture reduction, as well as the insertion of orthopedic fixation hardware. ANESTHESIA TYPE: General, plus regional. POSTOPERATIVE CONDITION: Stable. COMPLICATIONS: None. IMPLANTS: Arthrex distal fibular plate with associated 2.7, 3.0, and 3.5 screws. BLOOD LOSS: 100 mL INDICATION: This is a pleasant gentleman who suffered an unstable ankle injury. He was initially treated with closed reduction and temporary casting to allow for resolution of swelling. He was then brought to the operating room for definitive management. Prior to surgery, the risks, benefits, and alternatives were discussed with the patient as well as his family in detail. We reviewed the alternative of nonoperative care with a cast. We discussed this would be a non-anatomic reduction. There is a potential for posttraumatic arthrosis should he have persistent instability following the closed treatment. We discussed the recommended treatment is operative fixation. This would involve opening the ankle up, putting the bones back into place, and then fixing them in place with a plate and screws. We reviewed risks of surgery including bleeding, infection, neurovascular injury, need for further surgery, postoperative pain and stiffness, nonunion, malunion, hardware failure, or cutout. We discussed medical risks such as heart attack, stroke, DVT, PE, and . I reviewed the use of perioperative antibiotic and DVT prophylaxis. We discussed the postoperative rehabilitation protocol including nonweightbearing status. I reviewed all of the patient's questions and concerns. He voiced understanding and elected to proceed. DESCRIPTION OF PROCEDURE: The patient was brought to the operating room after administration of regional block in the preoperative holding area. The right lower extremity was then prepped and draped in usual sterile fashion. A preoperative dose of antibiotics given and the usual timeout procedure was performed. The fibula was now marked out, and then, the incision was marked out on the fibula. Incision was carried down through skin to subcutaneous tissue and down to bone; more distally and more proximally just through the skin to the edge of the subcutaneous tissue. This was then dissected using Metzenbaum scissors to avoid any injury to the superficial peroneal nerve. A periosteal elevator was now used to elevate the periosteum both proximally and distally to the fracture site and expose the fracture site. Fracture site itself was debrided of any loose debris by distracting it and then freeing it up with a curette. The fracture was now manipulated using fracture reduction forceps into an anatomic reduction. Fluoroscopy was used to confirm satisfactory reduction. To stabilize the reduction, a lag screw was now placed. This was drilled with a 3.5 drill bit, then a 2.5 drill bit in the [id number] direction. A lag screw was inserted, gaining moderate purchase. Maintaining the fracture reduction clamp on the bone, a plate was now slid under to gain fixation both proximally and distally. A plate was now fixed to the bone using a tack. Plate placement was confirmed fluoroscopically and looked satisfactory. Plate was now fixed to the bone initially distally using a 3.0 cancellous screw. This was followed by the insertion of locking screws in the adjacent holes. During insertion of the locking screw in a top hole, there was cross-threading present, and it was felt that adequate fixation was already obtained, and therefore, this hole was left empty. Attention was now turned proximally. Here, the plate was fixed to the bone utilizing 3.5-mm cortical screws, of which four were drilled, measured, and then inserted. Excellent purchase was achieved. At this point, the entire construct was examined both visually and fluoroscopically. Both fracture reduction and hardware placement were satisfactory. An external rotation stress test was performed, and no shifting of the mortise was seen. The wound was now copiously irrigated. The deep tissue was approximated using 0 Vicryl. The subcutaneous tissue was approximated using 3-0 Vicryl. The skin was closed using a running 3-0 nylon suture. Sterile dressings were placed. The patient was placed into a short-leg cast which was well padded. He was transferred to recovery room in stable condition. It should be noted that tourniquet was initially inflated during the beginning of the case. However, it was an incomplete tourniquet, and therefore, it was let down within minutes. Odalys JOHNSON/[id number]
[2017-12-16 13:45] VITALS: TEMP 97.8
[2017-12-16 15:55] VITALS: BP 138/84; PULSE 92
--- NOTE | 2017-12-17 11:48 | SURG ---
Surgery Adoption Agent Note Adoption Agent: Kayla Maxwell PA-C Date of Service: 12/16/17 Diagnosis: right malleolus fracture Procedure: right ankle open reduction internal fixation of lateral malleolus fracture, repair with distal fibular plate I was present for the entirety of the operative procedure. For further detail, please refer to operative report. Visit type - Case Type Case Type: Scheduled Admission - Emergency Emergency Visit: No - New patient This patient is new to me today: Yes Date on this admission: 12/16/17
== END 2017-12-16 15:00 | disposition home or self-care (01) ==
LOC: FASU 07:36
PROVIDERS: ATTEND Orthopaedic Surgery Sports Medicine
PROC: 0QSJ04Z Reposition Right Fibula with Internal Fixation Device, Open Approach (ICD-10-PCS; principal; 2017-12-16 09:42)
DX: S82.61XA Displaced fracture of lateral malleolus of right fibula, initial encounter for closed fracture (principal); X58.XXXA Exposure to other specified factors, initial encounter; Y93.9 Activity, unspecified; Y92.9 Unspecified place or not applicable
CPT/HCPCS: 73610-TC-RT-FY; 76001-TC-FY; 94010; 94760

== ENCOUNTER 2018-02-22 08:53 | Emergency (ER) | payer OTHER ==
[2018-02-22 09:17] VITALS: BP 124/83; PULSE 95; TEMP 98.8; BMI 50.0
[2018-02-22] MEDS ORDERED: KETOROLAC TROMETHAMINE 60 MG/2 ML VIAL IM ONE (09:47)
[2018-02-22] MEDS ORDERED: KETOROLAC TROMETHAMINE 60 MG/2 ML VIAL ONE (09:48)
--- NOTE | 2018-02-22 09:50 | PDOC ---
History of Present Illness - General Chief Complaint: Back Pain Stated Complaint: BACK PAIN Time Seen by Provider: 02/22/18 09:29 History Source: Patient Exam Limitations: No Limitations - History of Present Illness Initial Comments: 02/22/18 09:47 CHIEF COMPLAINT: [Lower back pain] HISTORY OF PRESENT ILLNESS: 37-year-old male history of low back pain, also history of surgery to right lower extremity in November reports being in bed for several weeks. Started to have low back pain last week was seen by Odalys told it was reaction from being in bed. Patient denies any fever. Pain is localized to lower back feels like "spasm" denies any fever. No difficulty ambulating.,[ Nonradiating pain, no neurosensory deficits, no bowel or bladder difficulty incontinence or urinary retention, no saddle anesthesia, no footdrop. No history of IVDU or history of cancer. Also asking to evaluate right lower extremity, has recently taken off the boat noticed left skin with multiple vesicles. ] REVIEW OF SYSTEMS: GENERAL: Afebrile, denies any weakness RESPIRATORY: No cough, wheezing, or hemoptysis. CARDIAC: No chest pain or shortness of breath MUSCULOSKELETAL: Pain to generalized lower back. No point tenderness. Pain worse on left than the right SKIN : No erythema, no bruising, no deformity. GI/: Denies any abdominal pain, no urinary difficulty, incontinence or urinary retention. RECTAL: Denies any difficulty this A.m. NEUROLOGICAL: Denies any numbness or tingling. No neurosensory deficits. PHYSICAL EXAM: GENERAL: The patient is awake, alert, and fully oriented, in no acute distress. RESPIRATORY: Lungs clear bilaterally, no rhonchi wheezes or crackles CARDIAC: S1-S2 audible, no murmur rub or gallop MUSCULOSKELETAL: Pain to generalized lower back, nonradiating, no tingling or sensory deficit. Less than 2 second cap refill, +4 popliteal and pedal pulses. GI/: Abdomen soft, nontender, nondistended. No rebound tenderness. No masses palpable. MUSCULOSKELETAL: No spinal point tenderness. Normal reflexive and no deficits to sensation or strength. Possible spasm to bilateral lower back. RECTAL: [Deferred patient with no neurological findings] SKIN: Warm, Dry, normal turgor, no erythema, no edema no bruising. Erythema with vesicular lesions to right lateral lower extremity. Past History - Past Medical History Allergies/Adverse Reactions: Allergies Allergy/AdvReac Type Severity Reaction Status Date / Time No Known Allergies Allergy Verified 02/22/18 09:16 Home Medications: Ambulatory Orders Enalapril Maleate [Vasotec] 20 mg PO BID 12/02/17 Oxycodone HCl/Acetaminophen [Percocet 5-325 mg Tablet] 1 tab PO Q4H PRN #20 tablet MDD 6 12/02/17 Ibuprofen [Motrin -] 600 mg PO TID PRN 12/13/17 Cyclobenzaprine HCl [Flexeril 10 mg] 10 mg PO BID PRN #20 tablet 02/22/18 Naproxen [Naprosyn -] 500 mg PO BID #28 tablet 02/22/18 Anemia: No Asthma: No Cancer: No Cardiac Disorders: No CVA: No (TIA 2014) COPD: No CHF: No DVT: No Dementia: No Diabetes: No (STATES WAS ON METFORMIN, LOST WEIGHT AND HASN'T NEEDED X 1.5 YEARS ) GI Disorders: No Disorders: No HTN: Yes Hypercholesterolemia: No Liver Disease: No Seizures: No Thyroid Disease: No - Surgical History Abdominal Surgery: Yes Appendectomy: No Cardiac Surgery: No Cholecystectomy: Yes (2014) Lung Surgery: No Neurologic Surgery: No Orthopedic Surgery: Yes - Immunization History Immunization Up to Date: Yes - Suicide/Smoking/Psychosocial Hx Smoking History: Current every day smoker Have you smoked in the past 12 months: Yes Number of Cigarettes Smoked Daily: 20 If you are a former smoker, when did you quit?: 20 Information on smoking cessation initiated: No 'Breaking Loose' booklet given: 11/17/17 Hx Alcohol Use: No Drug/Substance Use Hx: No Substance Use Type: None, Prescribed Hx Substance Use Treatment: No Trauma Specific PMHX - Complaint Specific PMHX Arthritis: No Back Injury: No Neck Injury: No Hx Sacro Iliac Joint Dysfunction: No *Physical Exam - Vital Signs Last Vital Signs Temp Pulse Resp BP Pulse Ox 98.8 F 95 H 19 124/83 98 02/22/18 09:12 02/22/18 09:12 02/22/18 09:12 02/22/18 09:12 02/22/18 09:12 Medical Decision Making - Medical Decision Making 02/22/18 09:49 A/P: Patient here for evaluation of lower back pain, spasmodic in nature. Will give Toradol 60 mg IM. Patient drove to emergency department unable to give Valium. Patient also requesting to evaluate right lower extremity he recently took off the boot after surgery and noticed dry skin with vesicular lesions, friction hunter. Area appears dry now, no evidence of a cellulitis no evidence of infection. I have instructed patient to keep area clean and dry and to follow -up with his surgeon, he reports he has an appointment on Wednesday. 02/22/18 10:26 Patient reports that he feels better after the Toradol will DC patient on Naprosyn and Flexeril, follow-up with Odalys *DC/Admit/Observation/Transfer Diagnosis at time of Disposition: Back pain Qualifiers: Back pain location: low back pain Chronicity: acute Back pain laterality: bilateral Sciatica presence: without sciatica Qualified Code(s): M54.5 - Low back pain - Discharge Dispostion Disposition: HOME Condition at time of disposition: Stable Admit: No - Prescriptions Prescriptions: Cyclobenzaprine HCl [Flexeril 10 mg] 10 mg PO BID PRN #20 tablet PRN Reason: Pain Naproxen [Naprosyn -] 500 mg PO BID #28 tablet - Referrals Referrals: Mamadou Kumar MD [Primary Care Provider] - - Patient Instructions Printed Discharge Instructions: Low Back Pain Additional Instructions: 1. Please return to the emergency department with any numbness, tingling, weakness, numbness or tingling to groin or legs, or loss of bowel or bladder function. 2. Use pain medication as ordered. 3. Please is to followup in the office of Dr. morales for evaluation within a week if no improvement. 4. Ice or heat 5. Refrain from lifting anything above 10 pounds, until pain resolved. - Post Discharge Activity Forms/Work/School Notes: Back to Work
== END 2018-02-22 10:45 | disposition home or self-care (01) ==
LOC: JERFT 08:53
PROC: 3E0233Z Introduction of Anti-inflammatory into Muscle, Percutaneous Approach (ICD-10-PCS; principal; 2018-02-22)
DX: M54.5 Low back pain (principal); E11.9 Type 2 diabetes mellitus without complications; Z86.73 Personal history of transient ischemic attack (TIA), and cerebral infarction without residual deficits; F17.210 Nicotine dependence, cigarettes, uncomplicated
CPT/HCPCS: 96372; 99281-25

== ENCOUNTER 2020-06-25 09:07 | Emergency (ER) | payer BC, OTHER ==
[2020-06-25 09:17] VITALS: BP 123/70; PULSE 78; TEMP 98.9; BMI 56.3
--- NOTE | 2020-06-25 09:46 | PDOC ---
History of Present Illness - General Chief Complaint: Chronic pain Stated Complaint: BACK PAIN Time Seen by Provider: 06/25/20 09:26 History Source: Patient Exam Limitations: No Limitations - History of Present Illness Initial Comments: 06/25/20 09:42 Patient is a 39-year-old male who presents to the ED with complaint of low back pain that he has had for the last 10 days. He states he was rinsing his mouth when the pain started. It is diffuse low back. He denies any numbness or tingling down his lower extremities. He denies any urinary fecal incontinence or retention. He was seen at [facility] urgent care, had an x-ray done and was told there were no fractures. He states he was given an injection and felt well enough to walk out of the urgent care. He states the pain has returned after the medication wore off and has not changed over the last 10 days. He also states that he was given a pill to take from the urgent care which does not help. He states he does not want any pain medication he just wants to know what is going on with his back. He denies any known injury. The patient has a history of hypertension and no allergies to medications. Past History - Medical History Allergies/Adverse Reactions: Allergies Allergy/AdvReac Type Severity Reaction Status Date / Time No Known Allergies Allergy Verified 02/22/18 09:16 Home Medications: Ambulatory Orders Enalapril Maleate [Vasotec] 20 mg PO BID 12/02/17 Oxycodone HCl/Acetaminophen [Percocet 5-325 mg Tablet] 1 tab PO Q4H PRN #20 tablet MDD 6 12/02/17 Ibuprofen [Motrin -] 600 mg PO TID PRN 12/13/17 Cyclobenzaprine HCl [Flexeril 10 mg] 10 mg PO BID PRN #20 tablet 02/22/18 Naproxen [Naprosyn -] 500 mg PO BID #28 tablet 02/22/18 Methylprednisolone [Medrol Dose Chau] 4 mg PO ASDIR #21 tablet 06/25/20 Anemia: No Asthma: No Cancer: No Cardiac Disorders: No CVA: No (TIA 2014) COPD: No CHF: No DVT: No Dementia: No Diabetes: No (STATES WAS ON METFORMIN, LOST WEIGHT AND HASN'T NEEDED X 1.5 YEARS) GI Disorders: No Disorders: No HTN: Yes Hypercholesterolemia: No Liver Disease: No Seizures: No Thyroid Disease: No - Surgical History Abdominal Surgery: Yes Appendectomy: No Cardiac Surgery: No Cholecystectomy: Yes (2014) Lung Surgery: No Neurologic Surgery: No Orthopedic Surgery: Yes - Immunization History Immunization Up to Date: Yes - Psycho-Social/Smoking History Smoking History: Never smoked Have you smoked in the past 12 months: No Number of Cigarettes Smoked Daily: 20 If you are a former smoker, when did you quit?: 20 Information on smoking cessation initiated: No 'Breaking Loose' booklet given: 11/17/17 - Substance Abuse Hx (Audit-C & DAST Scrn) How often the patient has a drink containing alcohol: Never Score: In Men: 4 or > Positive; In Women: 3 or > Positive: 0 Screen Result (Pos requires Nsg. Audit-10AR): Negative In the last yr the pt used illegal drug/Rx for NonMed reason: No Score: Yes response is considered Positive: 0 Screen Result (Positive result requires Nsg. DAST-10): Negative Review of Systems - Review of Systems Comments:: 06/25/20 09:44 - Review of Systems Able to Perform ROS?: Yes Constitutional: No: Fever, Chills, Loss of Appetite, Night Sweats, Weakness HEENTM: No: Eye Pain, Vision changes, Ear Pain, Throat Pain, Throat Swelling, Mouth Pain, Difficulty Swallowing Respiratory: No: Cough, Shortness of Breath, Wheezing, Sputum Production Cardiac (ROS): No: Chest Pain, Chest Tightness, Palpitations, Irregular Heart Beat, Edema ABD/GI: No: Nausea, Vomiting, Abdominal Pain, Diarrhea : No Dysuria, No Hematuria, No Frequency, No Urgency, No Penile Discharge/Pain Musculoskeletal: No: Muscle Pain, Joint Pain, Muscle Weakness, Neck Pain; positive lumbar back pain Integumentary: No: Lesions, Rash Neurological: No: Headache, Numbness, Tingling, Weakness, Speech Difficulties *Physical Exam - Vital Signs Last Vital Signs Temp Pulse Resp BP Pulse Ox 98.9 F 78 18 123/70 99 06/25/20 09:15 06/25/20 09:15 06/25/20 09:15 06/25/20 09:15 06/25/20 09:15 - Physical Exam 06/25/20 09:44 - Physical Exam General Appearance: Nourished, Appropriately Dressed, No Distress HEENT: EOMI, Normal Voice, Hearing Grossly Normal Neck: Supple, No Lymphadenopathy (R), No Lymphadenopathy (L), No Rigidity, No Decreased range of motion Respiratory/Chest: Lungs Clear, Normal Breath Sounds. No Respiratory Distress, No Accessory Muscle Use Cardiovascular: Regular Rhythm, Regular Rate, S1, S2 Gastrointestinal/Abdominal: Normal Bowel Sounds, Soft. Non-tender, No Guarding, No Rebound, No Rigidity Musculoskeletal: Normal Inspection. No Decreased Range of Motion; diffuse lumbar back tenderness to palpation. No step-off appreciated. No crepitus. Significant paraspinal tenderness bilateral. Extremity: Normal Capillary Refill, Normal Inspection Integumentary: Normal Color, Dry. No Rash Neurologic: manager hydraulic II-XII NML intact, Fully Oriented, Alert, Normal Mood/Affect, Normal Response ED Treatment Course - RADIOLOGY Radiology Studies Ordered: Category Date Time Status SPINE-LUMBAR ONLY [RAD] Stat Radiology 06/25/20 09:38 Ordered Medical Decision Making - Medical Decision Making 06/25/20 09:45 Assessment: Patient is a 39-year-old male with diffuse lumbar back pain for the last 10 days. Plan: -Lumbar back x-ray ordered -Patient has declined analgesia at this time -Will reassess 06/25/20 10:16 I have made the patient aware that he is awaiting a radiology read of his x-ray. I have again offered analgesia but he has declined at this time stating he has all sorts of medication his house which is not helping. 06/25/20 10:42 Patient has reiterated that he did not get an injection by [facility] but rather by the emergency department several years ago. After reviewing his previous medications, he was found to get both Valium IV and Toradol IM. We will give him Toradol at this time. He will follow-up with orthopedic spine surgery and referral has been given to him. He states he has an orthopedic surgeon but is unsure if he does back. We will send a Medrol Dosepak to his pharmacy as well. The patient stable for discharge and he understands and agrees with this treatment plan. 06/25/20 10:47 The patient has now declined the Toradol injection. Pt stable for discharge. Discharge - Discharge Information Problems reviewed: Yes Clinical Impression/Diagnosis: Lumbar back pain Condition: Stable Disposition: HOME - Additional Discharge Information Prescriptions: Methylprednisolone [Medrol Dose Chau] 4 mg PO ASDIR #21 tablet - Follow up/Referral Referrals: Sg Gaming MD [Staff Physician] - 1 week - Patient Discharge Instructions Patient Printed Discharge Instructions: DI for Low Back Pain Additional Instructions: Get plenty of rest and drink plenty of fluids. Be sure to avoid any strenuous physical activity. You want to move gently to help keep the muscles warm. Take the steroid Dosepak to help with the inflammatory process. Follow-up with orthopedic surgery, a spine surgeon has been referred to you. You may need an outpatient MRI for further evaluation. Descanse lo suficiente y salma muchos lquidos. Asegrese de evitar cualquier actividad fsica intensa. Desea moverse suavemente para ayudar a mantener calientes los msculos. [place] el esteroide Dosepak para ayudar con el proceso inflamatorio. Seguimiento con ciruga ortopdica, le alvarez referido un cirujano de columna. Es posible que necesite stepan resonancia magntica para pacientes ambulatorios para stepan evaluacin adicional. - Post Discharge Activity
[2020-06-25] MEDS ORDERED: KETOROLAC TROMETHAMINE 30 MG/1 ML VIAL ONE (10:42)
[2020-06-25] MEDS ORDERED: KETOROLAC TROMETHAMINE 30 MG/1 ML VIAL IM ONE (10:42)
== END 2020-06-25 11:40 | disposition home or self-care (01) ==
LOC: JERFT 09:07
PROC: 3E023GC Introduction of Other Therapeutic Substance into Muscle, Percutaneous Approach (ICD-10-PCS; principal; 2020-06-25)
DX: M54.5 Low back pain (principal)
CPT/HCPCS: 72100-TC-FY; 99284-25

== ENCOUNTER 2020-11-12 01:37 | Inpatient (IN) | payer BC ==
[2020-11-12] MEDS ORDERED: VANCOMYCIN 1 GM in D5W (PRE-DOCKED) 1,000 MG/250 ML IVPB ONE (02:44)
[2020-11-12] MEDS ORDERED: PIPERACILLIN/TAZOB 4.5 GM 4.5 GM in DEXTROSE 5%-WATER 100 ML IVPB ONE (03:01)
[2020-11-12] MEDS ORDERED: PIPERACILLIN/TAZOB 4.5 GM 4.5 GM/100 ML BAG IVPB ONE ×2 (03:17→03:18)
[2020-11-12 03:20] LABS: EOS % 4.9 % (0-4.5); HEMATOCRIT 38.9 % (35.4-49); HEMOGLOBIN 13.2 GM/dL (11.7-16.9); LYMPH % 24.7 % (8-40); MEAN CELL VOLUME 85.3 fl (80-96); MEAN PLT VOLUME 6.8 fl (7.5-11.1); MONO % 10.2 % (3.8-10.2); NEUT % 59.2 % (42.8-82.8); PLATELET COUNT 387 K/MM3 (134-434); RBC 4.56 M/mm3 (4.00-5.60); WHITE BLOOD COUNT 10.3 K/mm3 (4.0-10.0)
[2020-11-12 03:27] LABS: INR 1.08 (0.83-1.09)
[2020-11-12 03:36] LABS: POTASSIUM 3.9 mmol/L (3.5-5.1)
[2020-11-12 03:38] LABS: CALCIUM 8.4 mg/dL (8.5-10.1)
[2020-11-12 03:39] LABS: ALBUMIN 3.2 g/dl (3.4-5.0); BLOOD UREA NITROGEN 16.6 mg/dL (7-18)
[2020-11-12 03:42] LABS: CREATININE 0.9 mg/dL (0.55-1.3)
[2020-11-12 03:43] LABS: BILIRUBIN,TOTAL 0.2 mg/dL (0.2-1); TOT PROT 7.5 g/dl (6.4-8.2)
[2020-11-12] MEDS ORDERED: SODIUM CHLORIDE 1,000 ML IV SCH (05:30)
[2020-11-12] MEDS ORDERED: PIPERACILLIN/TAZOB 3.375 GM 3.375 GM/50 ML BAG IVPB ONE ×2 (08:39→18:11)
[2020-11-12] MEDS: ENOXAPARIN NA (PORCINE) 40 MG/0.4 ML DISP.SYRIN SQ SCH (09:24)
[2020-11-12 09:40] LABS: BASO % 0.9 % (0-2.0); EOS % 4.7 % (0-4.5); HEMATOCRIT 41.8 % (35.4-49); HEMOGLOBIN 13.9 GM/dL (11.7-16.9); LYMPH % 23.5 % (8-40); MCH 28.6 pg (25.7-33.7); MCHC 33.2 g/dl (32.0-35.9); MEAN CELL VOLUME 86.2 fl (80-96); MEAN PLT VOLUME 6.6 fl (7.5-11.1); MONO % 9.7 % (3.8-10.2); NEUT % 61.2 % (42.8-82.8); PLATELET COUNT 372 K/MM3 (134-434); RBC 4.85 M/mm3 (4.00-5.60); RDW 14.1 % (11.9-15.9); WHITE BLOOD COUNT 11.5 K/mm3 (4.0-10.0)
[2020-11-12] MEDS ORDERED: PIPERACILLIN/TAZOB 3.375 GM 3.375 GM in DEXTROSE 5%-WATER - 50 ML IVPB SCH (10:00)
[2020-11-12 10:01] LABS: BLOOD UREA NITROGEN 14.6 mg/dL (7-18); CALCIUM 8.4 mg/dL (8.5-10.1)
[2020-11-12 10:02] LABS: MAGNESIUM 2.1 mg/dL (1.8-2.4)
[2020-11-12 10:04] LABS: CREATININE 0.8 mg/dL (0.55-1.3)
[2020-11-12 10:05] LABS: PHOSPHOROUS 3.7 mg/dL (2.5-4.9)
[2020-11-12 10:50] LABS: PH,URINE 7.5 (5.0-8.0); URINE APPEARANCE CLEAR; URINE BILIRUBIN NEGATIVE (NEGATIVE); URINE COLOR YELLOW; URINE GLUCOSE (UA) NEGATIVE (NEGATIVE); URINE KETONE NEGATIVE (NEGATIVE); URINE LEUK ESTERASE NEGATIVE (NEGATIVE); URINE NITRITE NEGATIVE (NEGATIVE); URINE PROTEIN NEGATIVE (NEGATIVE); URINE UROBILINOGEN 0.2 mg/dL (0.2-1.0)
[2020-11-12] MEDS ORDERED: HYDROCHLOROTHIAZIDE 25 MG TABLET (FP) ONE (15:56)
[2020-11-12] MEDS ORDERED: LOSARTAN POTASSIUM 50 MG TABLET ONE (15:57)
[2020-11-12] MEDS: LOSARTAN POTASSIUM 50 MG TABLET PO SCH (15:59)
[2020-11-12] MEDS: HYDROCHLOROTHIAZIDE 25 MG TABLET (FP) PO SCH (15:59)
[2020-11-12] MEDS: PIPERACILLIN/TAZOB 3.375 GM 3.375 GM in DEXTROSE 5%-WATER - 50 ML IVPB SCH (18:50)
[2020-11-12 23:32] VITALS: BMI 45.6
[2020-11-13] MEDS ORDERED: DEXTROSE 5%-WATER - 50 ML IVPB ONE (02:21)
[2020-11-13] MEDS ORDERED: PIPERACILLIN/TAZOBACTAM 3.375 GM VIAL IVPB ONE (02:21)
[2020-11-13] MEDS: PIPERACILLIN/TAZOB 3.375 GM 3.375 GM in DEXTROSE 5%-WATER - 50 ML IVPB SCH ×3 (02:36→17:58)
[2020-11-13 07:58] LABS: MCH 28.7 pg (25.7-33.7); MCHC 34.2 g/dl (32.0-35.9); MEAN PLT VOLUME 6.5 fl (7.5-11.1); PLATELET COUNT 389 K/MM3 (134-434); RBC 4.88 M/mm3 (4.00-5.60); WHITE BLOOD COUNT 9.1 K/mm3 (4.0-10.0)
[2020-11-13 08:11] LABS: POTASSIUM 3.7 mmol/L (3.5-5.1)
[2020-11-13 08:15] LABS: BLOOD UREA NITROGEN 9.1 mg/dL (7-18); CALCIUM 8.6 mg/dL (8.5-10.1); MAGNESIUM 2.1 mg/dL (1.8-2.4)
[2020-11-13 08:18] LABS: CREATININE 0.7 mg/dL (0.55-1.3)
[2020-11-13] MEDS ORDERED: amLODIPine BESYLATE 5 MG TABLET (FP) PO SCH (10:00)
[2020-11-13] MEDS: ENOXAPARIN NA (PORCINE) 40 MG/0.4 ML DISP.SYRIN SQ SCH (10:08)
[2020-11-13] MEDS: LOSARTAN POTASSIUM 50 MG TABLET PO SCH (10:08)
[2020-11-13] MEDS: HYDROCHLOROTHIAZIDE 25 MG TABLET (FP) PO SCH (10:08)
[2020-11-13] MEDS ORDERED: amLODIPine BESYLATE 5 MG TABLET (FP) PO ONE (14:17)
[2020-11-13 23:15] VITALS: PULSE 67
[2020-11-14] MEDS: PIPERACILLIN/TAZOB 3.375 GM 3.375 GM in DEXTROSE 5%-WATER - 50 ML IVPB SCH ×2 (02:16→10:29)
[2020-11-14] MEDS ORDERED: amLODIPine BESYLATE 5 MG TABLET (FP) PO SCH (10:00)
[2020-11-14] MEDS: HYDROCHLOROTHIAZIDE 25 MG TABLET (FP) PO SCH (10:28)
[2020-11-14] MEDS: ENOXAPARIN NA (PORCINE) 40 MG/0.4 ML DISP.SYRIN SQ SCH (10:29)
[2020-11-14] MEDS: LOSARTAN POTASSIUM 50 MG TABLET PO SCH (10:29)
[2020-11-14 14:57] VITALS: BP 158/77; TEMP 98.3
== END 2020-11-14 17:29 | disposition home or self-care (01) | DRG 603 ==
LOC: JER 01:37 → JERBED 02:27 → J6WEST-2 23:39
PROVIDERS: ADMIT Hospitalist; ATTEND Internal Medicine
DX: L03.116 Cellulitis of left lower limb (principal); Z68.42 Body mass index [BMI] 45.0-49.9, adult; L03.115 Cellulitis of right lower limb; E66.01 Morbid (severe) obesity due to excess calories; I10 Essential (primary) hypertension; R73.03 Prediabetes; I99.8 Other disorder of circulatory system
CPT/HCPCS: 36415; 71045-TC-FY; 80048; 80053; 80061; 81003; 83036; 83605; 83721; 83735; 84100; 85025; 85027; 85610; 85730; 87040; 87086; 93005; 93010; 93970-TC; 99285-25; C9803; U0003

== ENCOUNTER 2021-03-24 20:20 | Emergency (ER) | payer BC ==
[2021-03-24 20:38] VITALS: BP 138/89; PULSE 85; TEMP 98.9; BMI 46.0
[2021-03-24] MEDS ORDERED: IBUPROFEN 600 MG TABLET (FP) PO ONE ×2 (21:02→21:03)
[2021-03-24] MEDS ORDERED: LIDOCAINE 5% TOPICAL PATCH TP ONE (21:02)
[2021-03-24] MEDS ORDERED: LIDOCAINE 5% TOPICAL PATCH ONE (21:03)
[2021-03-24] MEDS ORDERED: LIDOCAINE PATCH REMOVAL MC SCH (22:00)
== END 2021-03-24 21:18 | disposition home or self-care (01) ==
LOC: JERFT 20:20
DX: M54.5 Low back pain (principal)
CPT/HCPCS: 99284-25

== ENCOUNTER 2022-10-17 18:25 | Emergency (ER) | payer BC ==
[2022-10-17 18:43] VITALS: BP 165/83; PULSE 83; RESP 22; TEMP 98.9; BMI 51.2
== END 2022-10-17 20:44 | disposition home or self-care (01) ==
LOC: JER 18:25 → JERFT 18:25
DX: M25.561 Pain in right knee (principal)
CPT/HCPCS: 73562-TC-RT-FY; 99283-25